=== PATIENT | male | born 1975 | race Two or more races ===

== ENCOUNTER 2017-11-17 11:48 | Emergency (ER) | payer OTHER ==
[~2017-11-17] VITALS: Ht 180.3 cm; Wt 99.8 kg
== END 2017-11-17 13:41 | disposition home or self-care (01) ==
LOC: ER 11:48 → EDSEX 11:48 → ER 12:37
DX: S91.332A Puncture wound without foreign body, left foot, initial encounter (principal); W26.8XXA Contact with other sharp object(s), not elsewhere classified, initial encounter; Y93.89 Activity, other specified; Y92.89 Other specified places as the place of occurrence of the external cause; Y99.8 Other external cause status